=== PATIENT | male | born 1940 | race Caucasian/White ===

== ENCOUNTER 2016-07-28 12:33 | Emergency (ER) | payer MEDICARE, OTHER ==
[~2016-07-28] VITALS: Ht 180.3 cm; Wt 90.7 kg
[2016-07-28] MEDS ORDERED: SODIUM CHLORIDE 0.9% 1,000 ML IV ONE (13:09)
[2016-07-28 13:26] LABS: Basophils # (auto) 0 uL; Basophils % (auto) 0.4 % (0.0-2.0); Eosinophils # (auto) 0 uL; Eosinophils % (auto) 0.4 % (0.0-7.0); Hematocrit 50.3 % (41.0-53.0); Hemoglobin 17.2 g/dL (13.5-17.5); Lymphocytes # (auto) 1.7 uL; Lymphocytes % (auto) 16.6 % (10.0-50.0); Mean Corpuscular Hemoglobin 32.9 pg (28.0-32.0); Mean Corpuscular Hgb Conc. 34.2 g/dL (32.0-36.0); Mean Corpuscular Volume 96.2 fL (80.0-100.0); Mean Platelet Volume 7.7 fL (7.4-10.4); Monocytes # (auto) 0.7 uL; Neutrophils # (auto) 7.8 uL; Neutrophils % (auto) 75.6 % (37.0-80.0); Platelet Count (auto) 141 10^3/uL (140-450); Red Cell Distribution Width 14.8 % (11.6-16.0); White Blood Cell 10.4 10^3/uL (4.4-10.8)
[2016-07-28 13:46] LABS: Bilirubin, Total 0.4 mg/dL (0.2-1.0); Calcium 8.6 mg/dL (8.5-10.1); Potassium 3.8 mmol/L (3.5-5.1); Total Protein 7.1 g/dL (6.4-8.2)
[2016-07-28] MEDS ORDERED: SIMV-13 PO (15:19)
[2016-07-28] MEDS ORDERED: OXYB5TAB62 PO (15:19)
[2016-07-28] MEDS ORDERED: LEVO112T4 PO (15:19)
[2016-07-28] MEDS ORDERED: ALLO300T2 PO (15:19)
[2016-07-28] MEDS ORDERED: TAMS0.4C36 PO (15:19)
[2016-07-28] MEDS ORDERED: TEMA30CA PO (15:19)
[2016-07-28] MEDS ORDERED: LISI10TA6 PO (15:19)
[2016-07-28] MEDS ORDERED: ONDANSETRON HCL 4 MG/2 ML VIAL ONE (15:54)
[2016-07-28] MEDS ORDERED: ONDANSETRON HCL 4 MG/2 ML VIAL IV ONE (16:00)
[2016-07-28 16:15] VITALS: BP 110/39
[2016-07-28 16:24] LABS: Urine Bilirubin Negative (Negative); Urine Blood Negative /uL (Negative); Urine Color Yellow (Yellow); Urine Glucose Normal (Normal); Urine Hyaline Cast FEW /lpf (0 - 2); Urine Ketone TRACE (Negative); Urine Mucus FEW (None Seen); Urine Nitrite Negative (Negative); Urine RBC 1 /hpf (0 - 3); Urine Squamous Epithelial Cell FEW /hpf (<5); Urine Urobilinogen Normal (Negative); Urine pH 5.5 (5.0-8.0)
== END 2016-07-28 18:15 | disposition home or self-care (01) ==
LOC: ER 12:33 → EDBD 12:33 → ER 18:15
DX: R55 Syncope and collapse (principal); J32.4 Chronic pansinusitis; E44.1 Mild protein-calorie malnutrition; Z68.27 Body mass index [BMI] 27.0-27.9, adult; N28.9 Disorder of kidney and ureter, unspecified; E03.9 Hypothyroidism, unspecified; R42 Dizziness and giddiness; M10.9 Gout, unspecified; E78.5 Hyperlipidemia, unspecified; I10 Essential (primary) hypertension; E07.9 Disorder of thyroid, unspecified; Z79.899 Other long term (current) drug therapy
CPT/HCPCS: 36415; 70450; 71020; 80053; 80320; 81001; 83735; 84443; 84484; 85025; 85379; 93005; 94761; 96361; 96374; 99285; G0434; J2405; J7030

== ENCOUNTER → 2016-09-28 | Outpatient (CLI) | payer MEDICARE, OTHER ==
[~2016-09-28] MED LIST: ALLO300T2 PO; LEVO112T4 PO; LISI10TA6 PO; OXYB5TAB62 PO; SIMV-13 PO; TAMS0.4C36 PO; TEMA30CA PO
== END | disposition home or self-care (01) ==
LOC: HDHVI->DVH 08:26
PROVIDERS: ATTEND Internal Medicine Cardiovascular Disease
DX: R55 Syncope and collapse (principal); E86.9 Volume depletion, unspecified
CPT/HCPCS: 93880

== ENCOUNTER → 2016-10-14 | Outpatient (CLI) | payer MEDICARE, OTHER ==
[~2016-10-14] VITALS: Ht 177.8 cm; Wt 88.5 kg
== END | disposition home or self-care (01) ==
LOC: Rad HDHVI 08:14
PROVIDERS: ATTEND Internal Medicine Cardiovascular Disease
DX: I35.0 Nonrheumatic aortic (valve) stenosis (principal); I51.7 Cardiomegaly; I70.0 Atherosclerosis of aorta; I10 Essential (primary) hypertension; E78.00 Pure hypercholesterolemia, unspecified; E86.9 Volume depletion, unspecified; R55 Syncope and collapse
CPT/HCPCS: 78452; 93017; 93306; 96374; A9500

== ENCOUNTER 2020-10-10 12:05 | Inpatient (IN) | payer MEDICARE, OTHER ==
[~2020-10-10] VITALS: Ht 180.3 cm; Wt 67.2 kg
[~2020-10-10 12:05] MED LIST changes: +LISI-716 PO; -LISI10TA6 PO; +OXYB5TAB24 PO; -OXYB5TAB62 PO
[2020-10-10 13:46] LABS: Basophils # (auto) 0 10 ^3/uL (0-0.2); Basophils % (auto) 0.4 % (0.0-2.0); Eosinophils # (auto) 0 10 ^3/uL (0-0.8); Eosinophils % (auto) 0.2 % (0.0-7.0); Hematocrit 43.3 % (41.0-53.0); Hemoglobin 15.3 g/dL (13.5-17.5); Lymphocytes # (auto) 1.9 10 ^3/uL (0.4-5.4); Lymphocytes % (auto) 14.5 % (10.0-50.0); Mean Corpuscular Hemoglobin 33.3 pg (28.0-32.0); Mean Corpuscular Hgb Conc. 35.3 g/dL (32.0-36.0); Mean Corpuscular Volume 94.3 fL (80.0-100.0); Monocytes # (auto) 1.4 10 ^3/uL (0-1.3); Monocytes % (auto) 10.7 % (0.0-12.0); Neutrophils # (auto) 9.6 10 ^3/uL (1.6-8.6); Neutrophils % (auto) 74.2 % (37.0-80.0); Nucleated Red Blood Cells % 0.3 %; Platelet Count (auto) 186 10^3/uL (140-450); Red Blood Cells 4.59 10^6/uL (4.5-5.90); Red Cell Distribution Width 14.3 % (11.8-14.3); White Blood Cell 12.9 10^3/uL (4.4-10.8)
[2020-10-10 14:06] LABS: Blood Alcohol < 3.0 mg/dL (0-5)
[2020-10-10 14:18] LABS: Anion Gap 11 (5-15); Blood Urea Nitrogen 44 mg/dL (7-18); Calcium 8.4 mg/dL (8.5-10.1); Carbon Dioxide 17 mmol/L (21-32); Chloride 107 mmol/L (98-107); Glucose 121 mg/dL (74-106); Potassium 3.9 mmol/L (3.5-5.1); Sodium 135 mmol/L (136-145)
[2020-10-10 14:22] LABS: Alanine Aminotransferase 60 U/L (16-61); Alkaline Phosphatase 103 U/L (45-117); Aspartate Aminotransferase 68 U/L (15-37); BUN/Creatinine Ratio 30.8; Bilirubin, Total 0.7 mg/dL (0.2-1.0); GFR African American 61 mL/min; GFR Non-African American 50 mL/min; Total Protein 8.2 g/dL (6.4-8.2)
[2020-10-10] MEDS ORDERED: ASCORBIC ACID 500 MG TAB PO ONE (14:30)
[2020-10-10] MEDS ORDERED: AZITHROMYCIN 500MG/ 250ML 250 ML IV ONE (14:30)
[2020-10-10] MEDS ORDERED: ZINC SULFATE 220mg CAP or TAB PO ONE (14:30)
[2020-10-10] MEDS ORDERED: CHOLECALCIFEROL (VITD3) 2,000 UNIT CAP/TAB PO ONE (14:30)
[2020-10-10] MEDS ORDERED: methylPREDNISolone SOD SUCC 125 MG/2 ML VL IV ONE (14:30)
[2020-10-10 15:11] LABS: Albumin 2.7 g/dL (3.4-5.0)
[2020-10-10] MEDS ORDERED: MORPHINE SULF INJ 2 MG/ML SYRINGE 1ML IV PRN ×3 (16:15→16:45)
[2020-10-10] MEDS ORDERED: NITROGLYCERIN 0.4 MG SL TAB SL PRN ×2 (16:15→16:45)
[2020-10-10] MEDS ORDERED: ACETAMINOPHEN 325 MG TAB PO PRN (16:45)
[2020-10-10] MEDS ORDERED: ALUM & MAG HYDROX-SIMETH LIQ(MAALOX) 30 ML PO PRN (16:45)
[2020-10-10] MEDS ORDERED: LORazepam 0.5 MG TAB PO PRN (16:45)
[2020-10-10] MEDS ORDERED: ONDANSETRON HCL 4 MG/2 ML VIAL IV PRN (16:45)
[2020-10-10] MEDS ORDERED: DOCUSATE SOD 100 MG CAP PO PRN (16:45)
[2020-10-10] MEDS ORDERED: HYDROcodone-ACET 5/325MG TAB PO PRN (16:45)
[2020-10-10] MEDS ORDERED: ALBUTEROL SULF 2.5 MG/0.5ML(0.5%) NEB SOLN NEB PRN (17:00)
[2020-10-10] MEDS ORDERED: AMPICILLIN & SULBACTAM SODIUM 3 GM in SODIUM CHL 0.9% 100 ML IV SCH ×2 (17:10→17:30)
[2020-10-10 17:19] LABS: Urine Bacteria MANY /hpf (None Seen); Urine Blood 3+ /uL (Negative); Urine Specific Gravity 1.013 (1.001-1.035); Urine WBC 498 /hpf (0 - 3); Urine WBC Clumps PRESENT /hpf (None Seen)
[2020-10-10 17:25] LABS: Alcohol, Urine < 3.0 mg/dL (0-10); Amphetamine Screen, Urine NEGATIVE (NEGATIVE); Barbiturate Scree,Urine NEGATIVE (NEGATIVE); Benzodiazephine Screen, Urine NEGATIVE (NEGATIVE); Cannabinoid Screen, Urine NEGATIVE (NEGATIVE); Cocaine Screen, Urine NEGATIVE (NEGATIVE); Opiate Scree,Urine NEGATIVE (NEGATIVE); Phencyclidine Screen, Urine NEGATIVE (NEGATIVE)
[2020-10-10] MEDS ORDERED: IPRATROPIUM BROM 0.5 MG/2.5ML INH SOL NEB SCH (18:00)
[2020-10-10 18:07] VITALS: BP 93/60
[2020-10-10] MEDS: SODIUM CHLORIDE 0.9% 1,000 ML IV SCH (18:23)
[2020-10-10] MEDS: AMPICILLIN & SULBACTAM SODIUM 3 GM in SODIUM CHL 0.9% 100 ML IV SCH ×2 (18:23→23:45)
[2020-10-10] MEDS ORDERED: IPRATROPIUM BROM 0.5 MG/2.5ML INH SOL NEB PRN (19:30)
[2020-10-10] MEDS ORDERED: METOPROLOL TARTRATE 1MG/1ML-5ML VIAL IV PRN (19:30)
[2020-10-10 19:40] VITALS: BP 93/60
[2020-10-10 19:52] LABS: Cholesterol 165 mg/dL (< 200); HDL Cholesterol 43 mg/dL (40-59); LDL Cholesterol 96 mg/dL (< 100); Triglycerides 145 mg/dL (< 150)
[2020-10-10] MEDS: ENOXAPARIN SOD 30 MG/0.3 ML SYRINGE SC SCH (21:10)
[2020-10-10] MEDS: methylPREDNISolone SOD SUCC 40 MG/ML VL IV SCH (21:11)
[2020-10-10] MEDS: OXYBUTYNIN CHL 5 MG TAB PO SCH (21:11)
[2020-10-10 22:00] VITALS: BP 89/59
[2020-10-11 04:20] VITALS: BP 110/73
[2020-10-11] MEDS: methylPREDNISolone SOD SUCC 40 MG/ML VL IV SCH ×3 (05:54→21:36)
[2020-10-11] MEDS: AMPICILLIN & SULBACTAM SODIUM 3 GM in SODIUM CHL 0.9% 100 ML IV SCH (05:54)
[2020-10-11] MEDS: LEVOTHYROXINE SODIUM 112 MCG TAB PO SCH (05:55)
[2020-10-11 06:03] LABS: Basophils # (auto) 0 10 ^3/uL (0-0.2); Basophils % (auto) 0.1 % (0.0-2.0); Eosinophils # (auto) 0 10 ^3/uL (0-0.8); Hemoglobin 13.9 g/dL (13.5-17.5); Lymphocytes # (auto) 1.2 10 ^3/uL (0.4-5.4); Lymphocytes % (auto) 17.1 % (10.0-50.0); Mean Corpuscular Hemoglobin 33.7 pg (28.0-32.0); Mean Corpuscular Hgb Conc. 35.6 g/dL (32.0-36.0); Mean Corpuscular Volume 94.7 fL (80.0-100.0); Monocytes # (auto) 0.2 10 ^3/uL (0-1.3); Neutrophils # (auto) 5.6 10 ^3/uL (1.6-8.6); Neutrophils % (auto) 79.8 % (37.0-80.0); Nucleated Red Blood Cells % 0.1 %; Platelet Count (auto) 170 10^3/uL (140-450); Red Blood Cells 4.12 10^6/uL (4.5-5.90); Red Cell Distribution Width 14.6 % (11.8-14.3); White Blood Cell 7.1 10^3/uL (4.4-10.8)
[2020-10-11 06:14] LABS: INR 0.99 (0.9-1.15); Partial Thromboplastin Time 25.9 sec (23.0-31.2)
[2020-10-11 06:16] LABS: Albumin 2.4 g/dL (3.4-5.0); Anion Gap 8 (5-15); Blood Urea Nitrogen 47 mg/dL (7-18); Calcium 8.3 mg/dL (8.5-10.1); Carbon Dioxide 21 mmol/L (21-32); Chloride 108 mmol/L (98-107); Glucose 163 mg/dL (74-106); Magnesium 2.6 mg/dL (1.6-2.6); Potassium 4.4 mmol/L (3.5-5.1); Sodium 137 mmol/L (136-145)
[2020-10-11 06:22] LABS: Alanine Aminotransferase 62 U/L (16-61); Alkaline Phosphatase 93 U/L (45-117); Aspartate Aminotransferase 55 U/L (15-37); BUN/Creatinine Ratio 39.5; Bilirubin, Total 0.5 mg/dL (0.2-1.0); GFR African American 75 mL/min; GFR Non-African American 62 mL/min; Phosphorus 3.9 mg/dL (2.5-4.90); Total Protein 7.4 g/dL (6.4-8.2); Uric Acid 7.7 mg/dL (3.5-7.2)
[2020-10-11 09:00] VITALS: BP 123/70
[2020-10-11] MEDS: SODIUM CHLORIDE 0.9% 1,000 ML IV SCH ×3 (09:25→23:31)
[2020-10-11] MEDS: OXYBUTYNIN CHL 5 MG TAB PO SCH ×2 (09:44→21:36)
[2020-10-11] MEDS: ALLOPURINOL 100 MG TAB PO SCH (09:44)
[2020-10-11] MEDS: AZITHROMYCIN 500MG/ 250ML 250 ML IV SCH (09:44)
[2020-10-11] MEDS ORDERED: cefTRIAXone 1GM/50ML D5W 50 ML IV ONE (11:00)
[2020-10-11 13:00] VITALS: BP 110/72
[2020-10-11] MEDS ORDERED: IOHEXOL 350 MG/ML 100ML IJ ONE (16:18)
[2020-10-11 17:00] VITALS: BP 98/65
[2020-10-11] MEDS: TAMSULOSIN HYDROCHLORIDE 0.4 MG CAP PO SCH (17:46)
[2020-10-11] MEDS: ENOXAPARIN SOD 30 MG/0.3 ML SYRINGE SC SCH (17:46)
[2020-10-11] MEDS: ATORVASTATIN 20 MG TAB PO SCH (21:37)
[2020-10-11 21:52] VITALS: BP 111/69
[2020-10-12 05:00] VITALS: BP 99/64
[2020-10-12] MEDS: methylPREDNISolone SOD SUCC 40 MG/ML VL IV SCH ×3 (06:16→22:14)
[2020-10-12] MEDS: LEVOTHYROXINE SODIUM 112 MCG TAB PO SCH (06:17)
[2020-10-12 08:30] VITALS: BP 102/64
[2020-10-12] MEDS ORDERED: TEMAZEPAM 15 MG CAP PO PRN (08:30)
[2020-10-12] MEDS: cefTRIAXone 1GM/50ML D5W 50 ML IV SCH (08:38)
[2020-10-12] MEDS: AZITHROMYCIN 500MG/ 250ML 250 ML IV SCH (09:24)
[2020-10-12] MEDS: ALLOPURINOL 100 MG TAB PO SCH (09:25)
[2020-10-12] MEDS: OXYBUTYNIN CHL 5 MG TAB PO SCH ×2 (09:25→22:14)
[2020-10-12 13:00] VITALS: BP 105/70
[2020-10-12 16:58] VITALS: BP 103/66
[2020-10-12] MEDS: TAMSULOSIN HYDROCHLORIDE 0.4 MG CAP PO SCH (17:26)
[2020-10-12] MEDS ORDERED: ENOXAPARIN SOD 40 MG/0.4 ML SYRINGE SC SCH (18:00)
[2020-10-12 22:00] VITALS: BP 104/71
[2020-10-12] MEDS: ATORVASTATIN 20 MG TAB PO SCH (22:14)
[2020-10-13 05:00] VITALS: BP 117/72
[2020-10-13] MEDS: LEVOTHYROXINE SODIUM 112 MCG TAB PO SCH (06:18)
[2020-10-13] MEDS: methylPREDNISolone SOD SUCC 40 MG/ML VL IV SCH (06:18)
[2020-10-13 08:00] VITALS: BP 99/64
[2020-10-13] MEDS: cefTRIAXone 1GM/50ML D5W 50 ML IV SCH (08:45)
[2020-10-13] MEDS: AZITHROMYCIN 500MG/ 250ML 250 ML IV SCH (10:59)
[2020-10-13] MEDS: ALLOPURINOL 100 MG TAB PO SCH (11:00)
[2020-10-13] MEDS: OXYBUTYNIN CHL 5 MG TAB PO SCH (11:00)
[2020-10-13 12:00] VITALS: BP 107/67
[2020-10-13 12:14] VITALS: BP 107/67
== END 2020-10-13 13:00 | disposition home or self-care (01) | DRG 871 ==
LOC: ER 12:05 → TELE 16:08 → TELE-EAST 17:52
PROVIDERS: ADMIT Hospitalist; ATTEND Family Medicine
DX: A41.9 Sepsis, unspecified organism (principal); J96.20 Acute and chronic respiratory failure, unspecified whether with hypoxia or hypercapnia; G93.41 Metabolic encephalopathy; J18.9 Pneumonia, unspecified organism; N17.0 Acute kidney failure with tubular necrosis; J44.1 Chronic obstructive pulmonary disease with (acute) exacerbation; N10 Acute pyelonephritis; J44.0 Chronic obstructive pulmonary disease with (acute) lower respiratory infection; N13.8 Other obstructive and reflux uropathy; R29.6 Repeated falls; J20.9 Acute bronchitis, unspecified; N18.31 Chronic kidney disease, stage 3a; N13.9 Obstructive and reflux uropathy, unspecified; N32.81 Overactive bladder; M1A.9XX0 Chronic gout, unspecified, without tophus (tophi); I48.91 Unspecified atrial fibrillation; E86.0 Dehydration; E03.9 Hypothyroidism, unspecified; E78.5 Hyperlipidemia, unspecified; I13.10 Hypertensive heart and chronic kidney disease without heart failure, with stage 1 through stage 4 chronic kidney disease, or unspecified chronic kidney disease; Z20.822 Contact with and (suspected) exposure to COVID-19
CPT/HCPCS: 36415; 70450; 71046; 71275; 74176; 80053; 80061; 80307; 80320; 81001; 82140; 82306; 82728; 83036; 83735; 83880; 84100; 84443; 84484; 84550; 85025; 85379; 85610; 85730; 86141; 87040; 87086; 87088; 87186; 87426; 93005; 93970; 96365; 96375; G0378; J0696

== ENCOUNTER 2022-10-18 08:50 | Inpatient (IN) | payer MEDICARE, OTHER ==
[~2022-10-18] VITALS: Ht 180.3 cm; Wt 87.5 kg
[2022-10-18 10:22] LABS: INR 1.06 (0.9-1.15); Partial Thromboplastin Time 30.6 sec (24.6-33.4)
[2022-10-18 10:28] LABS: Basophils # (auto) 0 10 ^3/uL (0-0.2); Basophils % (auto) 0.5 % (0.0-2.0); Eosinophils # (auto) 0.1 10 ^3/uL (0-0.8); Eosinophils % (auto) 0.9 % (0.0-7.0); Hematocrit 44.7 % (41.0-53.0); Hemoglobin 14.8 g/dL (13.5-17.5); Lymphocytes # (auto) 2.1 10 ^3/uL (0.4-5.4); Lymphocytes % (auto) 23.6 % (10.0-50.0); Mean Corpuscular Hemoglobin 31.6 pg (28.0-32.0); Mean Corpuscular Hgb Conc. 33.2 g/dL (32.0-36.0); Mean Corpuscular Volume 95.1 fL (80.0-100.0); Monocytes # (auto) 0.6 10 ^3/uL (0-1.3); Monocytes % (auto) 7.2 % (0.0-12.0); Neutrophils % (auto) 67.8 % (37.0-80.0); Nucleated Red Blood Cells % 0.1 %; Red Cell Distribution Width 15.5 % (11.8-14.3); White Blood Cell 8.9 10^3/uL (4.4-10.8)
[2022-10-18 12:23] LABS: Chloride 103 mmol/L (98-107); Potassium 5.1 mmol/L (3.5-5.1); Sodium 134 mmol/L (136-145)
[2022-10-18 12:24] LABS: Anion Gap 14 (5-15); BUN/Creatinine Ratio 15.7 (10.0-20.0); Blood Urea Nitrogen 17 mg/dL (7-18); Carbon Dioxide 17 mmol/L (21-32); GFR African American 84 mL/min; GFR Non-African American 69 mL/min; Glucose 117 mg/dL (74-106)
[2022-10-18 12:25] LABS: Alanine Aminotransferase 41 U/L (16-61); Albumin 3.7 g/dL (3.4-5.0); Alkaline Phosphatase 106 U/L (45-117); Aspartate Aminotransferase 46 U/L (15-37); Bilirubin, Total 0.9 mg/dL (0.2-1.0); Calcium 8.8 mg/dL (8.5-10.1); Magnesium 2.2 mg/dL (1.6-2.6); Total Protein 7.2 g/dL (6.4-8.2)
[2022-10-18] MEDS ORDERED: dilTIAZem HCL 50 MG/10 ML VIAL IV ONE (12:30)
[2022-10-18] MEDS ORDERED: MORPHINE SULFATE INJ 2 MG/ml SYRG IV PRN (13:00)
[2022-10-18] MEDS ORDERED: ACETAMINOPHEN 325 MG TAB PO PRN (13:00)
[2022-10-18] MEDS ORDERED: ALBUTEROL SULF 2.5 MG/0.5ML(0.5%) NEB SOLN NEB PRN ×2 (13:00→13:30)
[2022-10-18] MEDS ORDERED: NITROGLYCERIN 0.4 MG SL TAB SL PRN (13:00)
[2022-10-18] MEDS ORDERED: FUROSEMIDE 20 MG/2 ML VIAL IV ONE (13:00)
[2022-10-18] MEDS ORDERED: dilTIAZem 25 MG/5 ML VIAL IV ONE (13:15)
[2022-10-18] MEDS ORDERED: dilTIAZem HCL 60 MG TAB PO ONE (13:15)
[2022-10-18 13:26] VITALS: BP 135/111
[2022-10-18] MEDS ORDERED: ASPirin 325 MG TAB PO ONE (13:30)
[2022-10-18 14:51] LABS: Cholesterol 122 mg/dL (< 200)
[2022-10-18 14:54] LABS: HDL Cholesterol 79 mg/dL (40-59); LDL Cholesterol 41 mg/dL (< 100); Triglycerides 75 mg/dL (< 150)
[2022-10-18] MEDS: IPRATROPIUM BROM 0.5 MG/2.5ML INH SOL NEB SCH (19:17)
[2022-10-18] MEDS: ALBUTEROL SULF 2.5 MG/0.5ML(0.5%) NEB SOLN NEB SCH (19:18)
[2022-10-18 21:30] VITALS: BP 129/80
[2022-10-18] MEDS: TEMAZEPAM 15 MG CAP PO PRN (23:47)
[2022-10-18 23:55] VITALS: BP 129/80
[2022-10-19] VITALS (7 sets, daily range): BP systolic 95–130; BP diastolic 61–85
[2022-10-19] MEDS: ALBUTEROL SULF 2.5 MG/0.5ML(0.5%) NEB SOLN NEB SCH ×4 (00:14→18:50)
[2022-10-19] MEDS: IPRATROPIUM BROM 0.5 MG/2.5ML INH SOL NEB SCH ×4 (00:15→18:50)
[2022-10-19] MEDS: LEVOTHYROXINE SODIUM 112 MCG TAB PO SCH (06:59)
[2022-10-19 07:00] LABS: Basophils # (auto) 0 10 ^3/uL (0-0.2); Basophils % (auto) 0.7 % (0.0-2.0); Eosinophils # (auto) 0.1 10 ^3/uL (0-0.8); Eosinophils % (auto) 1.9 % (0.0-7.0); Hematocrit 42.7 % (41.0-53.0); Hemoglobin 14.5 g/dL (13.5-17.5); Lymphocytes # (auto) 1.9 10 ^3/uL (0.4-5.4); Lymphocytes % (auto) 26.1 % (10.0-50.0); Mean Corpuscular Hgb Conc. 33.9 g/dL (32.0-36.0); Mean Corpuscular Volume 94.4 fL (80.0-100.0); Monocytes # (auto) 0.6 10 ^3/uL (0-1.3); Monocytes % (auto) 8.6 % (0.0-12.0); Neutrophils # (auto) 4.5 10 ^3/uL (1.6-8.6); Neutrophils % (auto) 62.7 % (37.0-80.0); Nucleated Red Blood Cells % 0.1 %; Red Blood Cells 4.53 10^6/uL (4.5-5.90); White Blood Cell 7.1 10^3/uL (4.4-10.8)
[2022-10-19 08:00] LABS: Potassium 4.3 mmol/L (3.5-5.1)
[2022-10-19 08:48] LABS: Albumin 3.3 g/dL (3.4-5.0); BUN/Creatinine Ratio 15.2 (10.0-20.0); Bilirubin, Total 0.8 mg/dL (0.2-1.0); Calcium 8.7 mg/dL (8.5-10.1); Total Protein 7.1 g/dL (6.4-8.2)
[2022-10-19] MEDS: ALLOPURINOL 300 MG TAB PO SCH (08:49)
[2022-10-19] MEDS: ASPirin 81 mg TAB PO SCH (08:54)
[2022-10-19] MEDS: ATORVASTATIN 20 MG TAB PO SCH (08:54)
[2022-10-19] MEDS: LISINOPRIL 10 MG TAB PO SCH (08:55)
[2022-10-19] MEDS ORDERED: ENOXAPARIN SOD 40 MG/0.4 ML SYRINGE SC SCH (10:00)
[2022-10-19] MEDS ORDERED: BUMETANIDE 2.5mg/10ml (0.25 mg/ml) INJ IV ONE (15:15)
[2022-10-19] MEDS: BUMETANIDE 2.5mg/10ml (0.25 mg/ml) INJ IV SCH (17:42)
[2022-10-19] MEDS: APIXABAN 2.5 MG TAB PO SCH (20:45)
[2022-10-19] MEDS: TEMAZEPAM 15 MG CAP PO PRN (20:45)
[2022-10-20] VITALS (11 sets, daily range): BP systolic 91–119; BP diastolic 62–78
[2022-10-20] MEDS: ALBUTEROL SULF 2.5 MG/0.5ML(0.5%) NEB SOLN NEB SCH ×5 (00:29→23:37)
[2022-10-20] MEDS: IPRATROPIUM BROM 0.5 MG/2.5ML INH SOL NEB SCH ×5 (00:29→23:37)
[2022-10-20] MEDS: LEVOTHYROXINE SODIUM 112 MCG TAB PO SCH (06:06)
[2022-10-20] MEDS: BUMETANIDE 2.5mg/10ml (0.25 mg/ml) INJ IV SCH ×2 (06:14→18:55)
[2022-10-20 10:13] LABS: Albumin 3.5 g/dL (3.4-5.0); Calcium 8.9 mg/dL (8.5-10.1)
[2022-10-20 10:15] LABS: Bilirubin, Total 0.6 mg/dL (0.2-1.0); Total Protein 7.6 g/dL (6.4-8.2)
[2022-10-20] MEDS: ATORVASTATIN 20 MG TAB PO SCH (11:45)
[2022-10-20] MEDS: APIXABAN 2.5 MG TAB PO SCH ×2 (11:45→20:58)
[2022-10-20] MEDS: ALLOPURINOL 300 MG TAB PO SCH (11:45)
[2022-10-20] MEDS: LISINOPRIL 10 MG TAB PO SCH (11:46)
[2022-10-20] MEDS: ASPirin 81 mg TAB PO SCH (11:46)
[2022-10-20] MEDS ORDERED: AMIODARONE HCL 150 MG in D5W 5% 100 ML IV ONE (12:45)
[2022-10-20] MEDS ORDERED: AMIODARONE 450mg/250ml AE 250 ML IV SCH (12:45)
[2022-10-20] MEDS: AMIODARONE 450mg/250ml AE 250 ML IV SCH (18:52)
[2022-10-20] MEDS: TEMAZEPAM 15 MG CAP PO PRN (20:58)
[2022-10-21] MEDS: AMIODARONE 450mg/250ml AE 250 ML IV SCH (02:03)
[2022-10-21 05:00] VITALS: BP 116/68
[2022-10-21] MEDS: ALBUTEROL SULF 2.5 MG/0.5ML(0.5%) NEB SOLN NEB SCH ×3 (05:51→18:15)
[2022-10-21] MEDS: IPRATROPIUM BROM 0.5 MG/2.5ML INH SOL NEB SCH ×3 (05:51→18:15)
[2022-10-21 06:59] LABS: BUN/Creatinine Ratio 24.1 (10.0-20.0); Calcium 9.1 mg/dL (8.5-10.1); Magnesium 1.9 mg/dL (1.6-2.6); Potassium 3.5 mmol/L (3.5-5.1)
[2022-10-21] MEDS: LEVOTHYROXINE SODIUM 112 MCG TAB PO SCH (07:00)
[2022-10-21] MEDS: BUMETANIDE 2.5mg/10ml (0.25 mg/ml) INJ IV SCH ×2 (07:09→18:00)
[2022-10-21 09:00] VITALS: BP 113/74
[2022-10-21] MEDS: ATORVASTATIN 20 MG TAB PO SCH (10:33)
[2022-10-21] MEDS: APIXABAN 2.5 MG TAB PO SCH ×2 (10:33→21:31)
[2022-10-21] MEDS: ALLOPURINOL 300 MG TAB PO SCH (10:33)
[2022-10-21] MEDS: LISINOPRIL 10 MG TAB PO SCH (10:34)
[2022-10-21] MEDS: ASPirin 81 mg TAB PO SCH (10:34)
[2022-10-21 12:41] VITALS: BP 104/76
[2022-10-21 16:23] VITALS: BP 104/76
[2022-10-21 17:00] VITALS: BP 105/84
[2022-10-21] MEDS: AMIODARONE HCL 200 MG TAB PO SCH (21:31)
[2022-10-21] MEDS: TEMAZEPAM 15 MG CAP PO PRN (21:31)
[2022-10-21 22:00] VITALS: BP 99/56
[2022-10-22 05:00] VITALS: BP 98/67
[2022-10-22] MEDS: BUMETANIDE 2.5mg/10ml (0.25 mg/ml) INJ IV SCH (05:48)
[2022-10-22] MEDS: LEVOTHYROXINE SODIUM 112 MCG TAB PO SCH (06:19)
[2022-10-22 06:33] LABS: BUN/Creatinine Ratio 23.8 (10.0-20.0); Calcium 9.1 mg/dL (8.5-10.1); Potassium 3.5 mmol/L (3.5-5.1)
[2022-10-22] MEDS: IPRATROPIUM BROM 0.5 MG/2.5ML INH SOL NEB SCH ×4 (07:09→18:00)
[2022-10-22] MEDS: ALBUTEROL SULF 2.5 MG/0.5ML(0.5%) NEB SOLN NEB SCH ×4 (07:09→18:00)
[2022-10-22 08:57] VITALS: BP 102/86
[2022-10-22] MEDS: ALLOPURINOL 300 MG TAB PO SCH (09:50)
[2022-10-22] MEDS: APIXABAN 2.5 MG TAB PO SCH (09:50)
[2022-10-22] MEDS: AMIODARONE HCL 200 MG TAB PO SCH (09:51)
[2022-10-22] MEDS: ASPirin 81 mg TAB PO SCH (09:51)
[2022-10-22] MEDS: ATORVASTATIN 20 MG TAB PO SCH (09:51)
[2022-10-22] MEDS: LISINOPRIL 10 MG TAB PO SCH (09:53)
[2022-10-22 12:29] VITALS: BP 102/86
[2022-10-22 12:53] VITALS: BP 115/73
[2022-10-22 17:14] VITALS: BP 121/80
== END 2022-10-22 17:54 | DRG 291 ==
LOC: EDBD 08:50 → ER 08:50 → TELE 13:01 → TELE-WESTW 21:11
PROVIDERS: ADMIT Nurse Practitioner Family; ATTEND Internal Medicine
DX: I11.0 Hypertensive heart disease with heart failure (principal); I50.21 Acute systolic (congestive) heart failure; J96.01 Acute respiratory failure with hypoxia; D68.69 Other thrombophilia; I42.8 Other cardiomyopathies; Z20.822 Contact with and (suspected) exposure to COVID-19; E78.5 Hyperlipidemia, unspecified; I48.91 Unspecified atrial fibrillation; I35.0 Nonrheumatic aortic (valve) stenosis; M10.9 Gout, unspecified; E03.9 Hypothyroidism, unspecified; F41.9 Anxiety disorder, unspecified; I25.5 Ischemic cardiomyopathy; Z79.899 Other long term (current) drug therapy
CPT/HCPCS: 36415; 71045; 80048; 80053; 80061; 83735; 83880; 84100; 84439; 84443; 84484; 85025; 85379; 85610; 85730; 87426; 93005; 93306; 94640; 96374; 96375; 99291; G0378; J7060

== ENCOUNTER → 2022-11-22 | Outpatient (CLI) | payer MEDICARE, OTHER ==
[~2022-11-22] VITALS: Ht 180.3 cm; Wt 83.5 kg
[~2022-11-22] MED LIST changes: +ADENOSINE 70 MG in GIVE UN-DILUTED 0 ML IV ONE; +ADENOSINE 90 MG/30 ML INJ IV ONE; +AMIO200T13 PO; +IBUP-1456 PO; -LISI-716 PO; +LISI10TA34 PO; +MAGN200T11 PO; +ONDANSETRON HCL 4 MG/2 ML VIAL ONE; +RIVA20TA PO; -SIMV-13 PO; +SIMV40TA18 PO
== END | disposition home or self-care (01) ==
LOC: Rad HDHVI 14:23
PROVIDERS: ATTEND Internal Medicine Cardiovascular Disease
DX: I11.0 Hypertensive heart disease with heart failure (principal); I50.9 Heart failure, unspecified; E78.5 Hyperlipidemia, unspecified; I25.10 Atherosclerotic heart disease of native coronary artery without angina pectoris; I48.91 Unspecified atrial fibrillation; R06.02 Shortness of breath; R00.2 Palpitations; Z79.899 Other long term (current) drug therapy
CPT/HCPCS: 78452; 93005; 96374; 96375; A9500; J0153; J2405

== ENCOUNTER → 2022-11-24 | Outpatient (CLI) | payer MEDICARE, OTHER ==
[~2022-11-24] MED LIST changes: -ADENOSINE 70 MG in GIVE UN-DILUTED 0 ML IV ONE; -ADENOSINE 90 MG/30 ML INJ IV ONE; -ONDANSETRON HCL 4 MG/2 ML VIAL ONE
[2022-11-24 08:10] VITALS: BP 126/71
[2022-11-24 09:20] VITALS: BP 139/84
== END | disposition home or self-care (01) ==
LOC: Rad HDHVI 08:10
PROVIDERS: ATTEND Internal Medicine Cardiovascular Disease
DX: Z01.818 Encounter for other preprocedural examination (principal); I48.0 Paroxysmal atrial fibrillation
CPT/HCPCS: 71046; G0463

== ENCOUNTER 2022-11-25 07:25 | Day surgery (SDC) | payer MEDICARE, OTHER ==
[2022-11-24 10:05] LABS: Basophils # (auto) 0 10 ^3/uL (0-0.2); Basophils % (auto) 0.6 % (0.0-2.0); Eosinophils # (auto) 0.1 10 ^3/uL (0-0.8); Eosinophils % (auto) 1.4 % (0.0-7.0); Hematocrit 47.8 % (41.0-53.0); Hemoglobin 16.2 g/dL (13.5-17.5); Lymphocytes # (auto) 2.9 10 ^3/uL (0.4-5.4); Lymphocytes % (auto) 34.2 % (10.0-50.0); Mean Corpuscular Hemoglobin 31.4 pg (28.0-32.0); Mean Corpuscular Hgb Conc. 33.9 g/dL (32.0-36.0); Mean Corpuscular Volume 92.6 fL (80.0-100.0); Monocytes # (auto) 0.8 10 ^3/uL (0-1.3); Monocytes % (auto) 9.6 % (0.0-12.0); Neutrophils # (auto) 4.6 10 ^3/uL (1.6-8.6); Neutrophils % (auto) 54.2 % (37.0-80.0); Nucleated Red Blood Cells % 0.2 %; Red Blood Cells 5.16 10^6/uL (4.5-5.90); Red Cell Distribution Width 15.4 % (11.8-14.3); White Blood Cell 8.4 10^3/uL (4.4-10.8)
[2022-11-24 10:19] LABS: INR 1.08 (0.9-1.15); Partial Thromboplastin Time 33.8 SEC (24.5-34.5)
[2022-11-24 11:26] LABS: Calcium 9.1 mg/dL (8.5-10.1); Potassium 5.1 mmol/L (3.5-5.1)
[2022-11-24 11:29] LABS: BUN/Creatinine Ratio 14.2 (10.0-20.0)
[~2022-11-25] VITALS: Ht 180.3 cm; Wt 83.9 kg
[~2022-11-25 07:25] MED LIST changes: -OXYB5TAB24 PO; -TAMS0.4C36 PO
== END 2022-11-25 09:20 | disposition home or self-care (01) ==
LOC: CATH 07:25
PROVIDERS: ATTEND Internal Medicine Cardiovascular Disease
DX: I48.20 Chronic atrial fibrillation, unspecified (principal); I44.0 Atrioventricular block, first degree; E78.5 Hyperlipidemia, unspecified; Z79.01 Long term (current) use of anticoagulants; I11.0 Hypertensive heart disease with heart failure; I50.20 Unspecified systolic (congestive) heart failure
CPT/HCPCS: 36415; 80048; 85025; 85610; 85730; 93005

== ENCOUNTER → 2022-12-27 | Outpatient (CLI) | payer MEDICARE, OTHER | END | disposition home or self-care (01) | LOC: Rad HDHVI 08:56 | PROVIDERS: ATTEND Internal Medicine Cardiovascular Disease | DX: I08.3 Combined rheumatic disorders of mitral, aortic and tricuspid valves (principal); I11.9 Hypertensive heart disease without heart failure; R00.2 Palpitations | CPT/HCPCS: 93306 ==

== ENCOUNTER 2023-02-03 09:47 | Day surgery (SDC) | payer MEDICARE, OTHER ==
[2023-02-02 11:18] LABS: Basophils # (auto) 0.1 10 ^3/uL (0-0.2); Basophils % (auto) 0.6 % (0.0-2.0); Eosinophils # (auto) 0.2 10 ^3/uL (0-0.8); Eosinophils % (auto) 1.6 % (0.0-7.0); Hematocrit 46.5 % (41.0-53.0); Hemoglobin 15.7 g/dL (13.5-17.5); Lymphocytes # (auto) 2.9 10 ^3/uL (0.4-5.4); Mean Corpuscular Hemoglobin 31.8 pg (28.0-32.0); Mean Corpuscular Hgb Conc. 33.7 g/dL (32.0-36.0); Mean Corpuscular Volume 94.3 fL (80.0-100.0); Monocytes # (auto) 0.8 10 ^3/uL (0-1.3); Monocytes % (auto) 8.3 % (0.0-12.0); Neutrophils % (auto) 60.5 % (37.0-80.0); Nucleated Red Blood Cells % 0.1 %; Red Blood Cells 4.93 10^6/uL (4.5-5.90); Red Cell Distribution Width 16.6 % (11.8-14.3); White Blood Cell 9.9 10^3/uL (4.4-10.8)
[2023-02-02 11:33] LABS: INR 1.35 (0.9-1.15); Partial Thromboplastin Time 43.2 SEC (24.5-34.5); Prothrombin Time 13.9 sec (9.3-11.8)
[2023-02-02 12:02] LABS: Anion Gap 5.3 (5-15); Carbon Dioxide 27.7 mmol/L (20-30); Chloride 107 mmol/L (98-107); Potassium 4.7 mmol/L (3.5-5.1); Sodium 140 mmol/L (136-145)
[2023-02-02 12:03] LABS: Calcium 9.1 mg/dL (8.5-10.1)
[2023-02-02 12:08] LABS: Blood Urea Nitrogen 10 mg/dL (9-23); Glucose 94 mg/dL (74-106)
[~2023-02-03] VITALS: Ht 180.3 cm; Wt 80.3 kg
[~2023-02-03 09:47] MED LIST changes: -LISI10TA34 PO
[2023-02-03] MEDS ORDERED: HYDROmorphone HCL 2 MG/ML VL/or syr ONE (12:18)
[2023-02-03] MEDS ORDERED: MAGN400T40 PO (12:43)
[2023-02-03] MEDS ORDERED: SIMV80TA17 PO (12:43)
== END 2023-02-03 15:00 | disposition home or self-care (01) ==
LOC: CATH 09:47
PROVIDERS: ATTEND Internal Medicine Cardiovascular Disease
DX: I25.10 Atherosclerotic heart disease of native coronary artery without angina pectoris (principal); I10 Essential (primary) hypertension; Z79.899 Other long term (current) drug therapy
CPT/HCPCS: 36415; 80048; 85025; 85610; 85730; 93460; 93571; C1757; C1887; C9600; J1170; 99152; 99153

== ENCOUNTER → 2023-12-08 | Outpatient (CLI) | payer MEDICARE, OTHER ==
[~2023-12-08] MED LIST changes: -MAGN200T11 PO; +MAGN400T40 PO; -SIMV40TA18 PO; +SIMV80TA17 PO
== END | disposition home or self-care (01) ==
LOC: Rad HDHVI 08:21
PROVIDERS: ATTEND Internal Medicine Cardiovascular Disease
DX: I35.8 Other nonrheumatic aortic valve disorders (principal); I10 Essential (primary) hypertension
CPT/HCPCS: 93306

== ENCOUNTER → 2024-08-21 | Outpatient (CLI) | payer MEDICARE, OTHER ==
[~2024-08-21] MED LIST changes: +HYDR-4902 PO
== END | disposition home or self-care (01) ==
LOC: Rad HDHVI 08:34
PROVIDERS: ATTEND Internal Medicine Cardiovascular Disease
DX: I34.81 Nonrheumatic mitral (valve) annulus calcification (principal); I51.7 Cardiomegaly
CPT/HCPCS: 93306

== ENCOUNTER → 2024-08-31 | Outpatient (CLI) | payer MEDICARE, OTHER ==
[~2024-08-31] VITALS: Ht 180.3 cm; Wt 90.7 kg
[~2024-08-31] MED LIST changes: +ADENOSINE 76 MG in GIVE UN-DILUTED 0 ML IV ONE; +ADENOSINE 90 MG/30 ML INJ IV ONE
== END | disposition home or self-care (01) ==
LOC: Rad HDHVI 08:06
PROVIDERS: ATTEND Internal Medicine Cardiovascular Disease
DX: I49.1 Atrial premature depolarization (principal); I45.10 Unspecified right bundle-branch block; I25.10 Atherosclerotic heart disease of native coronary artery without angina pectoris; I35.0 Nonrheumatic aortic (valve) stenosis; E11.9 Type 2 diabetes mellitus without complications; I50.43 Acute on chronic combined systolic (congestive) and diastolic (congestive) heart failure; R00.2 Palpitations; I47.10 Supraventricular tachycardia, unspecified; I49.3 Ventricular premature depolarization; I42.1 Obstructive hypertrophic cardiomyopathy; Z95.2 Presence of prosthetic heart valve
CPT/HCPCS: 78452; 93017; A9500; J0153; 93005; 96374; 96375

== ENCOUNTER 2025-03-17 09:42 | Inpatient (IN) | payer MEDICARE, OTHER ==
[~2025-03-17] VITALS: Ht 182.9 cm; Wt 90.0 kg
[~2025-03-17 09:42] MED LIST changes: -ADENOSINE 76 MG in GIVE UN-DILUTED 0 ML IV ONE; -ADENOSINE 90 MG/30 ML INJ IV ONE
--- NOTE | 2025-03-17 10:25 | ED.PDOC ---
History of Present Illness HPI Comments 84-year-old male came to the ER stating that he has been having right arm pain along with bleeding wound which happened two days ago. He did fall landing on his elbow causing a skin tear. Family has been wrapping it up but still continues to bleed. He does have a history of hypotension atrial fibrillation o n a blood thinner. Possibly has dementia. Denies chest pain shortness a breath. Denies any other symptoms. Chief Complaint: Wound Check Time Seen by MD: 09:47 Primary Care Provider: True Gibbons Notes: Nurses Notes, Medications, Allergies Allergies: Coded Allergies: NO KNOWN ALLERGIES (Unverified , 11/24/22) Home Meds Active Scripts Hydrocodone-Acetaminophen (Hydrocodone Bitartrate/AC 5-325 mg) 1 Tab Tab, 1 TAB PO Q6HPRN PRN, #20 TAB Prov:JAVIERVALERIANO WELLS PAC 11/11/23 Reported Medications Magnesium Oxide (MAGNESIUM OXIDE) 400 Mg Tab, 1 TAB PO DAILY for SUPPLEMENT 02/03/23 Simvastatin (Simvastatin) 80 Mg Tab, 1 TAB PO QPM for HIGH CHOLESTEROL 02/03/23 Ibuprofen (Ibuprofen) 800 Mg Tab, 1 TAB PO DAILY for ARTHRITIS 11/24/22 Rivaroxaban (XARELTO) 20 Mg Tab, 1 TAB PO DAILY for ATRIAL FIB. 11/24/22 Amiodarone HCl (Amiodarone HCl) 200 Mg Tab, 1 TAB PO QAM for ATRIAL FIB. 11/24/22 Temazepam (Temazepam) 30 Mg Cap, 1 CAP PO HS for INSOMNIA 07/28/16 Allopurinol (Allopurinol) 300 Mg Tab, 1 TAB PO DAILY for GOUT 07/28/16 Levothyroxine Sodium (Levothyroxine Sodium) 112 Mcg Tab, 1 TAB PO QAM for HYPO THYROIDISM 07/28/16 Information Source: Patient Mode of Arrival: Ambulatory Severity: Moderate Timing: Days Past Medical History PAST MEDICAL HISTORY: AFIB, Anxiety, Gout, High Lipids, HTN, Thyroid Surgical History: Denies all surgeries Family History Family History: Reviewed,noncontributory to illness Social History Smoker: Non-Smoker Alcohol: Occasionally Drugs: Denies Drug Use Lives In: Home Constitutional: denies: chills, diaphoresis, fatigue, fever, malaise, sweats, weakness, others EENTM: denies: blurred vision, double vision, ear bleeding, ear discharge, ear drainage, ear pain, ear ringing, eye pain, eye redness, hearing loss, mouth pain, mouth swelling, nasal discharge, nose bleeding, nose congestion, nose pain, photophobia, tearing, throat pain, throat swelling, voice changes, others Respiratory: denies: cough, hemoptysis, orthopnea, SOB at rest, shortness of breath, SOB with excertion, stridor, wheezing, others Cardiovascular: denies: chest pain, dizzy spells, diaphoresis, Dyspnea on exertion, edema, irregular heart beat, left arm pain, lightheadedness, palpitations, PND, syncope, others Gastrointestinal: denies: abdomen distended, abdominal pain, blood streaked bowels, constipated, diarrhea, dysphagia, difficulty swallowing, hematemesis, melena, nausea, poor appetite, poor fluid intake, rectal bleeding, rectal pain, vomiting, others Genitourinary: denies: burning, dysuria, flank pain, frequency, hematuria, incontinence, penile discharge, penile sore, pain, testicle pain, testicle swelling, urgency, others Neurological: denies: dizziness, fainting, headache, left sided numbness, left sided weakness, numbness, paresthesia, pre-existing deficit, right sided numbness, right sided weakness, seizure, speech problems, tingling, tremors, weakness, others Musculoskeletal: denies: back pain, gout, joint pain, joint swelling, muscle pain, muscle stiffness, neck pain, others Integumetry: reports: wounds (Right forearm); denies: bruises, change in color, change in hair/nails, dryness, laceration, lesions, lumps, rash, others Allergic/Immunocompromised: denies: Difficulty Healing, Frequent Infections, Hives, Itching, others Hematologic/Lymphatic: denies: anemia, blood clots, easy bleeding, easy bruising, swollen glands, others Endocrine: denies: excessive hunger, excessive sweating, excessive thirst, excessive urination, flushing, intolerance to cold, intolerance to heat, unexplained weight gain, unexplained weight loss, others Psychiatric: denies: anxiety, bipolar disorder, depression, hopeless, panic disorder, schizophrenia, sleepless, suicidal, others Physical Exam General Appearance: Moderate Distress HEENT: Normal ENT Inspection, Pharynx Normal, TMs Normal Neck: Full Range of Motion, Non-Tender, Normal, Normal Inspection Respiratory: Chest Non-Tender, Lungs Clear, No Accessory Muscle Use, No Respiratory Distress, Normal Breath Sounds Cardiovascular: No Edema, No JVD, No Murmur, No Gallop, Normal Peripheral Pulses, Regular Rate/Rhythm Breast Exam: Deferred Gastrointestinal: No Organomegaly, Non Tender, No Pulsatile Mass, Normal Bowel Sounds, Soft Genitalia: Deferred Pelvic: Deferred Rectal: Deferred Extremities: No calf tenderness, Normal capillary refill, Normal inspection, Normal range of motion, Non-tender, No pedal edema Musculoskeletal : Apperance: Normal Neurologic: Alert, social psychologist II-XII nml as Tested, No Motor Deficits, Normal Affect, Normal Mood, No Sensory Deficits Cerebellar Function: Normal Reflexes: Normal Skin: Wounds (Right forearm) Lymphatic: No Adenopathy Was a procedure done? Was a procedure done?: No Differential Dx Considerations may include: Cellulitis X-Ray, Labs, Meds, VS Vital Signs Date Time Temp Pulse Resp B/P (MAP) Pulse Ox O2 Delivery O2 Flow Rate FiO2 03/17/25 09:43 97.4 90 15 148/97 97 97.4 Patient alert. Status post fall. Has a skin tear in the right forearm. Vitals stable. Possible early infection. Blood pressure slightly elevated. Started Rocephin pain Wound care consultation. Explained to the family that he will be admitted because of his high-risk +of the wound has a early infection along with bleeding. Continue monitoring. Time of 1ST Reevaluation: 10:23 Reevaluation 1ST: Unchanged Patient Education/Counseling: Diagnosis, Treatment, Prognosis, Need For Follow Up Family Education/Counseling: Diagnosis, Treatment, Prognosis SEPSIS Sepsis Screen Date sepsis recognized/suspect: Mar 17, 2025 Time Sepsis recognized/suspect: 0945 Recent Procedure: No On Antibiotic Therapy: No Respiratory Rate >20: No Heart Rate >90: No Temp<36 C (96.8 F) or >38.3 C: No SBP <90 or MAP <65 mmHG: No New Acute Mental Status Change: No Is the patient on CPAP, BIPAP,: No Vital Signs Date Time Temp Pulse Resp B/P (MAP) Pulse Ox O2 Delivery O2 Flow Rate FiO2 03/17/25 09:43 97.4 90 15 148/97 97 97.4 Departure 1 Departure Time of Disposition: 10:24 Impression: Primary Impression: Cellulitis Qualified Codes: L03.113 - Cellulitis of right upper limb Additional Impressions: Atrial fibrillation with controlled ventricular rate HTN (hypertension) Qualified Codes: I10 - Essential (primary) hypertension Disposition: ADMITTED INPATIENT Admit to: Med Surg Condition: Guarded Critical Care Note Critical Care Time?: No Stability Stability form required: No Heart Score Heart Score: Heart Score Response (Comments) Value History Slightly Suspicious 0 EKG Normal 0 Age >65 2 Risk Factors >3 or Hx ASHD 2 Troponin Normal limit 0 Total 4 ASHLEY COLEMAN MD Mar 17, 2025 10:25
[2025-03-17 10:57] LABS: Hematocrit 44.8 % (41.0-53.0); Hemoglobin 15.2 g/dL (13.5-17.5); Mean Corpuscular Hemoglobin 33.3 pg (28.0-32.0); Mean Corpuscular Volume 98.0 fL (80.0-100.0); Nucleated Red Blood Cells % 0.1 %
[2025-03-17 11:05] LABS: Potassium 4.7 mmol/L (3.5-5.1); Sodium 141 mmol/L (136-145)
[2025-03-17 11:06] LABS: Anion Gap 9 (5-15); Carbon Dioxide 23 mmol/L (20-31)
[2025-03-17 11:07] LABS: Calcium 9.3 mg/dL (8.7-10.4)
[2025-03-17 11:11] LABS: BUN/Creatinine Ratio 13.5 (10.0-20.0); Blood Urea Nitrogen 19 mg/dL (9-23); Glucose 102 mg/dL (74-106)
[2025-03-17 11:16] LABS: Chloride 109 mmol/L (98-107)
[2025-03-17] MEDS ORDERED: HYDROcodone-ACET 5/325MG TAB PO PRN (12:00)
--- NOTE | 2025-03-17 12:05 | DVHHP2 ---
History of Present Illness History of Present Illness Patient is 84-year-old male who came to the hospital after recent mechanical fall while walking outside on slippery surface on last Tuesday. Patient injured himself with right arm and forearm laceration. Given patient is on anticoagulation for atrial fibrillation, patient continued to have active bleeding over the site of laceration that prompted visit to the hospital. Patient has 3-4 cm size laceration on forearm, similar size on arm as well, continued to ooze bleeding. Approximately 100 mL blood loss today over the site of laceration. No active signs of erythema over nearby skin or pus formation. Clean dressing and bandage has been wrapped, patient denying any other symptoms. Past medical history: Ascending aortic aneurysm 4.5 cm on 11/11/2023, interstitial lung disease, atrial fibrillation on rivaroxaban, questionable dementia , hypothyroidism Surgical history: Denies Family history: Noncontributory Social history: Lives with family, denied smoking, drug use. History of drinking alcohol seven beers per day. Allergies: Denies Home medication: Simvastatin, Synthroid, amiodarone, rivaroxaban, temazepam Review of Systems Constitutional: No: Fever, Chills, Sweats, Weakness, Malaise, Other Eyes: No: Pain, Vision change, Conjunctivae inflammation, Eyelid inflammation, Other, Redness ENT: No: Ear pain, Ear discharge, Nose pain, Nose discharge, Nose congestion, Mouth pain, Mouth swelling, Throat pain, Throat swelling, Other Respiratory: No: Cough, Dry, Shortness of breath, SOB with excertion, Wheezing, Hemoptysis, Pleuritic Pain, Sputum, Wheezing, Other Cardiovascular: No: Chest Pain, Palpitations, Orthopnea, Paroxysmal Noc. Dyspnea, Edema, Lt Headedness, Other Gastrointestinal: No: Nausea, Vomiting, Abdominal Pain, Diarrhea, Constipation, Melena, Hematochezia, Other Genitourinary: No Dysuria, No Frequency, No Incontinence, No Hematuria, No Retention, No Other Musculoskeletal: arm pain, hand pain Skin: No: Rash, Lesions, Jaundice, Bruising, Other Neurological: No: Weakness, Numbness, Incoordination, Change in speech, Confusion, Seizures, Other Allergies: Coded Allergies: NO KNOWN ALLERGIES (Unverified , 11/24/22) Medications Current Medications Medications Dose Ordered Sig/Melina Route Start Time Stop Time Status Last Admin Dose Admin Acetaminophen/ Hydrocodone Bitart 1 tab Q4HP PRN PO 03/17/25 12:00 UNV Ceftriaxone Sodium 50 ml @ 100 mls/hr DAILY@09 IV 03/18/25 09:00 UNV Amiodarone HCl 200 mg Q12HR PO 03/17/25 22:00 UNV Atorvastatin Calcium 40 mg HS PO 03/17/25 22:00 UNV Exam Vital Signs Vital Signs Date Time Temp Pulse Resp B/P (MAP) Pulse Ox O2 Delivery O2 Flow Rate FiO2 03/17/25 11:39 97.9 89 18 134/70 (91) 96 97.9 03/17/25 11:39 Room Air Exam General Appearance: Cooperative. Well developed. Well nourished. NAD Head Exam: Normal inspection Neck Exam: Normal inspection. Non-tender. Normal alignment Pulmonary/Respiratory: Chest non-tender. Clear bilateral breath sounds Cardiovascular/Chest: Regular rate and rhythm. No murmurs. No JVD. Peripheral Pulses: 2+ Radial (R). 2+ Radial (L). 2+ Pedal (R). 2+ Pedal (L) Abdominal Exam: Normal bowel sounds. Soft. Nontender. No hepatospenomegaly. No masses Ankle Exam: Negative ankle edema Upper extremities: Right forearm laceration, right arm laceration with oozing blood over the side. Negative lower extremity edema Neuro/Mental Status: A&O x4. Coherent Thoughts/Psych: Normal thought pattern. Appropriate mood and affect. Good judgement and insight Appearance: In no acute distress Skin Exam: Normal inspection. Normal color. Warm. Dry Labs/Xrays Labs Test 03/17/25 10:35 Range/Units White Blood Count 10.7 4.4-10.8 10^3/uL Red Blood Count 4.57 4.5-5.90 10^6/uL Hemoglobin 15.2 13.5-17.5 g/dL Hematocrit 44.8 41.0-53.0 % Mean Corpuscular Volume 98.0 80.0-100.0 fL Mean Corpuscular Hemoglobin 33.3 H 28.0-32.0 pg Mean Corpuscular Hemoglobin Concent 34.0 32.0-36.0 g/dL Red Cell Distribution Width 14.3 11.8-14.3 % Platelet Count 211 140-450 10^3/uL Mean Platelet Volume 8.4 6.9-10.8 fL Neutrophils (%) (Auto) 62.0 37.0-80.0 % Lymphocytes (%) (Auto) 28.4 10.0-50.0 % Monocytes (%) (Auto) 7.4 0.0-12.0 % Eosinophils (%) (Auto) 1.2 0.0-7.0 % Basophils (%) (Auto) 1.0 0.0-2.0 % Neutrophils # (Auto) 6.6 1.6-8.6 10 ^3/uL Lymphocytes # (Auto) 3.0 0.4-5.4 10 ^3/uL Monocytes # (Auto) 0.8 0-1.3 10 ^3/uL Eosinophils # (Auto) 0.1 0-0.8 10 ^3/uL Basophils # (Auto) 0.1 0-0.2 10 ^3/uL Nucleated Red Blood Cells 0.1 % Sodium Level 141 136-145 mmol/L Potassium Level 4.7 3.5-5.1 mmol/L Chloride Level 109 H 98-107 mmol/L Carbon Dioxide Level 23 20-31 mmol/L Anion Gap 9 5-15 Blood Urea Nitrogen 19 9-23 mg/dL Creatinine 1.41 H 0.700-1.30 mg/dL Glomerular Filtration Rate Calc 49 >90 mL/min BUN/Creatinine Ratio 13.5 10.0-20.0 Serum Glucose 102 74-106 mg/dL Calcium Level 9.3 8.7-10.4 mg/dL Troponin I High Sensitivity 11 </=54 ng/L SEPSIS Sepsis Screen Date sepsis recognized/suspect: Mar 17, 2025 Time Sepsis recognized/suspect: 0945 Recent Procedure: No On Antibiotic Therapy: No Respiratory Rate >20: No Heart Rate >90: No Temp<36 C (96.8 F) or >38.3 C: No SBP <90 or MAP <65 mmHG: No New Acute Mental Status Change: No Is the patient on CPAP, BIPAP,: No Physician Orders Electrocardigram (03/17/25 10:25) Heplock Iv (03/17/25 ) Admit (03/17/25 11:58) Code Status (03/17/25 11:58) Vital Signs .PER UNIT PROTOCOL (03/17/25 11:58) Review Orders With Adm. (03/17/25 11:58) Regular Diet (03/17/25 Lunch) Notify Md Of Changes From Base (03/17/25 11:58) Advance Directive (03/17/25 11:58) Urinalysis (03/17/25 11:58) Patient Condition (03/17/25 11:58) Allergies (03/17/25 11:58) Hydrocodone-Acet 5/325mg Tab (Fordyce 5/32 (03/17/25 12:00) Sequential Compression Device (03/17/25 ) * Wound Consult (03/17/25 ) Wound Culture W/ Gs (03/17/25 11:58) Ceftriaxone 1gm/50ml (Rocephin) (03/18/25 09:00) Amiodarone Tablet (Cordarone Tablet) (03/17/25 22:00) Amiodarone Tablet (Cordarone Tablet) (03/17/25 12:15) Atorvastatin (Lipitor) (03/17/25 22:00) Thyroid Stimulating Hormone (03/17/25 12:02) Vitamin D, 25-Hydroxy (03/17/25 12:02) PTPTT (03/17/25 12:04) Vital Signs Date Time Temp Pulse Resp B/P (MAP) Pulse Ox O2 Delivery O2 Flow Rate FiO2 03/17/25 11:39 97.9 89 18 134/70 (91) 96 97.9 03/17/25 11:39 89 18 96 Room Air 03/17/25 09:43 97.4 90 15 148/97 97 97.4 Laboratory Tests Test 03/17/25 10:35 White Blood Count 10.7 10^3/uL (4.4-10.8) Medications Medications Dose Ordered Sig/Melina Route Start Time Stop Time Status Last Admin Dose Admin Ceftriaxone Sodium 50 ml @ 100 mls/hr ONCE ONCE IV 03/17/25 10:30 03/17/25 10:59 DC 03/17/25 11:57 100 MLS/HR Assessment/Plan Assessment/Plan Right arm laceration Right forearm laceration -wound who consultation -empiric IV antibiotics ceftriaxone -continue to monitor H&H -right arm and forearm x-ray no fracture -hold anticoagulation Atrial fibrillation on anticoagulation -amiodarone 200 mg p.o. b.i.d. -hold anticoagulation CKD stage 3 -GFR 49 -continue to monitor and treat comorbidities hypertension, dyslipidemia. Hypothyroidism -continue levothyroxine 125 mcg p.o. daily -TSH 35.93 -follow up with pending free T4 and free T3. Hypertension -continue lisinopril 20 mg p.o. daily Dyslipidemia -atorvastatin 40 mg p.o. daily, patient takes simvastatin at home. History of vitamin-D deficiency -check vitamin-D level PUD prophylaxis with Protonix DVT prophylaxis : Patient is actively bleeding, patient is ambulatory. Goals of care discussed with patient and his , discussed greater than 22 minutes, DNI/DNR. Plan discussed with Dr. Conde Plan discussed with: Patient, Spouse My Orders Orders - ARLIN PERES Procedure Category Date Status Time Admit ADMIT 03/17/25 Transmitted 11:58 Code Status CODE 03/17/25 Transmitted 11:[address] [facility] 03/17/25 In Process 11:[address] [facility] 03/17/25 In Process Adm. 11:58 Regular Diet DIET 03/17/25 Transmitted Lunch Notify Md Of Changes [facility] 03/17/25 In Process From Base 11:58 Advance Directive [facility] 03/17/25 In Process 11:58 Urinalysis LAB 03/17/25 Logged 11:58 Patient Condition ORDERS 03/17/25 Transmitted 11:58 Allergies [facility] 03/17/25 In Process 11:58 Hydrocodone-Acet PHA 03/17/25 Logged 5/325mg Tab (Fordyce 12:00 Sequential [facility] 03/17/25 In Process Compression Device * Wound Consult CONS 03/17/25 Transmitted Wound Culture W/ Gs MARIA VICTORIA 03/17/25 Logged 11:58 Ceftriaxone 1gm/50ml PHA 03/18/25 Logged (Rocephin) 09:00 Amiodarone Tablet PHA 03/17/25 Logged (Cordarone Tablet) 22:00 Amiodarone Tablet PHA 03/17/25 Logged (Cordarone Tablet) 12:15 Atorvastatin (Lipitor) PHA 03/17/25 Logged 22:00 Thyroid Stimulating LAB 03/17/25 Logged Hormone 12:02 Vitamin D, 25-Hydroxy LAB 03/17/25 Logged 12:02 PTPTT LAB 03/17/25 Transmitted 12:04 Date of Service: Mar 17, 2025 Billing Provider: EDEL CONDE MD Common Visit Codes: [id number] INP/OBS CARE (HIGH) Secondary Visit Codes: [id number] CARE PLAN 30 MINUTES ARLIN PERES RESIDENT Mar 17, 2025 12:05
[2025-03-17] MEDS: AMIODARONE HCL 200 MG TAB PO ONE (12:35)
[2025-03-17 13:23] LABS: INR 1.17 (0.9-1.15); Partial Thromboplastin Time 35.8 SEC (24.5-34.5); Prothrombin Time 12.2 sec (9.3-11.8)
[2025-03-17] MEDS: PANTOPRAZOLE 40 MG TAB PO ONE (13:48)
[2025-03-17 13:52] VITALS: PULSE 97; RESP 16; O2SAT 98
[2025-03-17 13:59] LABS: Urine Protein, UAD TRACE (Negative)
--- NOTE | 2025-03-17 15:16 | DVH ---
CLINICAL INDICATION: PAIN TECHNIQUE: 2 radiographic views of the right forearm were obtained. Comparison: None FINDINGS/IMPRESSION: Bony structures of the right forearm are intact with no fractures. There are no radiopaque foreign bodies There are several cysts in multiple carpal bones.
--- NOTE | 2025-03-17 15:17 | DVH ---
CLINICAL INDICATION: Right forearm and upper arm x-ray TECHNIQUE: 2 radiographic views of the right humerus were obtained. Comparison: None FINDINGS/IMPRESSION: Normal bony alignment No fractures or dislocations. No radiopaque foreign bodies No abnormal soft tissue calcifications.
[2025-03-17 15:39] VITALS: BP 148/87; PULSE 80; RESP 18; TEMP 98; O2SAT 100
[2025-03-17 15:49] VITALS: BP 148/87; PULSE 80; RESP 18; TEMP 98; O2SAT 100
[2025-03-17] MEDS ORDERED: LISI20TA56 PO (16:30)
[2025-03-17] MEDS ORDERED: LEVO-849 PO (16:31)
[2025-03-17] MEDS ORDERED: ATOR-507 PO (16:33)
[2025-03-17] MEDS ORDERED: CHOL20007 PO (16:34)
[2025-03-17 18:26] LABS: Hematocrit 42.5 % (41.0-53.0); Hemoglobin 14.3 g/dL (13.5-17.5)
[2025-03-17] MEDS: LEVOTHYROXINE SODIUM 25 MCG TAB PO ONE (19:48)
[2025-03-17] MEDS: LEVOTHYROXINE SODIUM 100 MCG TAB PO ONE (19:48)
[2025-03-17] MEDS: LISINOPRIL 20 MG TAB PO ONE (19:49)
[2025-03-17 21:00] VITALS: BP 109/64; PULSE 69; RESP 20; TEMP 98.2; O2SAT 93
[2025-03-17] MEDS: AMIODARONE HCL 200 MG TAB PO SCH (21:03)
[2025-03-17] MEDS: ATORVASTATIN 20 MG TAB PO SCH (21:03)
[2025-03-17 21:41] VITALS: BP 127/79; PULSE 65; RESP 17; TEMP 97.8; O2SAT 98
[2025-03-18] VITALS (8 sets, daily range): BP systolic 114–146; BP diastolic 67–89; PULSE 58–81; RESP 16–18; TEMP 81–98.6; O2SAT 98–99
[2025-03-18] MEDS: LEVOTHYROXINE SODIUM 25 MCG TAB PO SCH (05:58)
[2025-03-18] MEDS: LEVOTHYROXINE SODIUM 100 MCG TAB PO SCH (05:58)
[2025-03-18] MEDS: PANTOPRAZOLE 40 MG TAB PO SCH (05:59)
[2025-03-18 07:32] LABS: Hematocrit 41.3 % (41.0-53.0); Hemoglobin 14.2 g/dL (13.5-17.5); Mean Corpuscular Hemoglobin 33.4 pg (28.0-32.0); Mean Corpuscular Volume 97.3 fL (80.0-100.0); Nucleated Red Blood Cells % 0.1 %
[2025-03-18] MEDS: LISINOPRIL 20 MG TAB PO SCH (09:23)
[2025-03-18 12:48] LABS: Free T3 1.65 pg/mL (2.3-4.2)
[2025-03-18 12:55] LABS: Free T4 (Free Thyroxine) 0.95 ng/dL (0.89-1.76)
--- NOTE | 2025-03-18 12:56 | DVHPN2 ---
Progress Note Date Seen: Mar 18, 2025 Medical Necessity Reason Pt with a Central, PICC or Fol: No Subjective Patient reports: No new complaints Review of Systems: HEENT:Normal, CVS:Normal, RESPIRATORY:Normal, GI:Normal, :Normal, MSK:Normal, NEURO:Normal Objective vital signs Vital Sign Date Time Temp Pulse Resp B/P (MAP) Pulse Ox O2 Delivery O2 Flow Rate FiO2 03/18/25 09:23 130/75 03/18/25 08:34 97.9 64 16 98 97.9 03/17/25 16:00 Room Air* 0 21 Total Intake and Output 03/17/25 03/17/25 03/18/25 15:00 23:00 07:00 Intake Total 50 ml 800 ml Balance 50 ml 800 ml medications Current Medications Medications Dose Ordered Sig/Melina Route Start Time Stop Time Status Last Admin Dose Admin Acetaminophen/ Hydrocodone Bitart 1 tab Q4HP PRN PO 03/17/25 12:00 Atorvastatin Calcium 40 mg HS PO 03/17/25 22:00 03/17/25 21:03 40 MG Pantoprazole Sodium 40 mg DAILY@0600 PO 03/18/25 06:00 03/18/25 05:59 40 MG Levothyroxine Sodium 100 mcg QAM@0600 PO 03/18/25 06:00 03/18/25 05:58 100 MCG Levothyroxine Sodium 25 mcg QAM@0600 PO 03/18/25 06:00 03/18/25 05:58 25 MCG Amiodarone HCl 200 mg DAILY PO 03/19/25 10:00 UNV Examination: GENERAL:Normal, HEENT:Normal, NECK:Normal, LUNGS:Normal, CVS:Normal, ABDOMEN:Normal, MSK:Normal, MSK:Abnormal (RIGHT FOREARM LACERATION), SKIN:Normal, NEURO:Normal, :Normal laboratory and microbiology Laboratory Tests 03/18/25 06:24 03/17/25 10:35 Test 03/17/25 10:35 Range/Units Serum Glucose 102 74-106 mg/dL Problem List/Assessment/Plan Problem List/Assessment/Plan #1 right forearm laceration/fall: iv ancef #2 uncontrolled hypothyroidism: cont meds #3 alcohol abuse: thiamine #4 a fib : hold xarelto #5 prosthetic AV #6 cad s/p stent to lad #7 hyperlipidemia #8 htn #9 gout advance care planning- full code- time spent 19 mins Plan discussed with: Patient, Spouse My Orders My Orders Orders - GI SARKAR MD Procedure Category Date Status Time * Cardiology Consult CONS 03/18/25 Transmitted 12:47 Amiodarone Tablet PHA 03/19/25 Transmitted (Cordarone Tablet) 10:00 Lisinopril Tablet PHA 03/19/25 Transmitted (Zestril Tablet) 10:00 Cefazolin Ancef PHA 03/18/25 Transmitted 14:00 Pt Request For Service PT 03/18/25 Transmitted 12:48 * Brake Repairer CONS 03/18/25 Transmitted Consult Thiamine Inj PHA 03/18/25 Transmitted 13:00 Thiamine Inj PHA 03/19/25 Transmitted 10:00 Complete Blood Count LAB 03/19/25 Verified 06:00 Comprehensive LAB 03/19/25 Verified Metabolic Panel 06:00 Magnesium LAB 03/19/25 Verified 05:00 Phosphorus LAB 03/19/25 Verified 06:00 Chest Portable XY 03/18/25 Transmitted 12:48 Date of Service: Mar 18, 2025 Billing Provider: GI SARKAR MD Common Visit Codes: [id number] INP/OBS CARE(HIGH) Secondary Visit Codes: [id number] CARE PLAN 30 MINUTES GI SARKAR MD Mar 18, 2025 12:56
--- NOTE | 2025-03-18 13:28 | DVH ---
INDICATION: CAD TECHNIQUE: Frontal view of the chest. COMPARISON: XR CHEST 2 VIEWS on DOS: 01/04/25, XY CHEST XRAY 1 VIEW on DOS: 11/11/23, CT CHEST WITHOUT C ONTRAST on DOS: 11/11/23, XY CHEST TWO VIEWS ROUTINE on DOS: 02/02/23, XY CHEST TWO VIEWS ROUTINE on DOS : 11/24/22 FINDINGS: . The heart and mediastinal contours are grossly unremarkable. There is no evidence of pleural disea se. The lungs are clear. The bony structures of the chest are intact without fracture. IMPRESSION: 1. No evidence of acute disease.
--- NOTE | 2025-03-18 13:46 | DVHPN2 ---
Progress Note - Dictate Date Seen: Mar 17, 2025 Medical Necessity Reason Pt with a Central, PICC or Fol: No Subjective PT WITH MECHANICAL FALL SUSTAINED ARM LACERATION BLEEDING DIATHESIS SECONDARY TO ELIQUIS USE PMH ORG HD AFIB HTN HYPERLIPIDEMIA AAA ELVIN HYPOTHYROIDISM ELEVATED TSH SECONDARY TO AMIODARONE INTERSTITIAL LUNG DISEASE vital signs Vital Sign Date Time Temp Pulse Resp B/P (MAP) Pulse Ox O2 Delivery O2 Flow Rate FiO2 03/18/25 09:23 130/75 03/18/25 08:34 97.9 64 16 98 97.9 03/17/25 16:00 Room Air* 0 21 Total Intake and Output 03/17/25 03/17/25 03/18/25 15:00 23:00 07:00 Intake Total 50 ml 800 ml Balance 50 ml 800 ml medications Current Medications Medications Dose Ordered Sig/Melina Route Start Time Stop Time Status Last Admin Dose Admin Acetaminophen/ Hydrocodone Bitart 1 tab Q4HP PRN PO 03/17/25 12:00 Atorvastatin Calcium 40 mg HS PO 03/17/25 22:00 03/17/25 21:03 40 MG Pantoprazole Sodium 40 mg DAILY@0600 PO 03/18/25 06:00 03/18/25 05:59 40 MG Levothyroxine Sodium 100 mcg QAM@0600 PO 03/18/25 06:00 03/18/25 05:58 100 MCG Levothyroxine Sodium 25 mcg QAM@0600 PO 03/18/25 06:00 03/18/25 05:58 25 MCG Amiodarone HCl 200 mg DAILY PO 03/19/25 10:00 Lisinopril 10 mg DAILY PO 03/19/25 10:00 Cefazolin Sodium 50 ml @ 100 mls/hr Q8HR IV 03/18/25 14:00 Thiamine HCl 100 mg DAILY IV 03/19/25 10:00 laboratory and microbiology Laboratory Tests 03/18/25 06:24 03/17/25 10:35 Test 03/17/25 10:35 Range/Units Serum Glucose 102 74-106 mg/dL Problem List MECHANICAL FALL SUSTAINED ARM LACERATION BLEEDING DIATHESIS SECONDARY TO ELIQUIS USE PM ORG HD AFIB HTN HYPERLIPIDEMIA AAA ELVIN HYPOTHYROIDISM ELEVATED TSH SECONDARY TO AMIODARONE INTERSTITIAL LUNG DISEASE Assessment/Plan DC ELIQURYAN ATTAIN HEMOSTASIS WOUND CARE Plan discussed with: Patient NICHOLE CASAREZ MD Mar 18, 2025 13:46
--- NOTE | 2025-03-18 13:46 | DVHPN2 ---
Progress Note - Dictate Date Seen: Mar 18, 2025 Medical Necessity Reason Pt with a Central, PICC or Fol: No Subjective PT WITH MECHANICAL FALL SUSTAINED ARM LACERATION BLEEDING DIATHESIS SECONDARY TO ELIQUIS USE PMH ORG HD AFIB HTN HYPERLIPIDEMIA AAA ELVIN HYPOTHYROIDISM ELEVATED TSH SECONDARY TO AMIODARONE INTERSTITIAL LUNG DISEASE vital signs Vital Sign Date Time Temp Pulse Resp B/P (MAP) Pulse Ox O2 Delivery O2 Flow Rate FiO2 03/18/25 09:23 130/75 03/18/25 08:34 97.9 64 16 98 97.9 03/17/25 16:00 Room Air* 0 21 Total Intake and Output 03/17/25 03/17/25 03/18/25 15:00 23:00 07:00 Intake Total 50 ml 800 ml Balance 50 ml 800 ml medications Current Medications Medications Dose Ordered Sig/Melina Route Start Time Stop Time Status Last Admin Dose Admin Acetaminophen/ Hydrocodone Bitart 1 tab Q4HP PRN PO 03/17/25 12:00 Atorvastatin Calcium 40 mg HS PO 03/17/25 22:00 03/17/25 21:03 40 MG Pantoprazole Sodium 40 mg DAILY@0600 PO 03/18/25 06:00 03/18/25 05:59 40 MG Levothyroxine Sodium 100 mcg QAM@0600 PO 03/18/25 06:00 03/18/25 05:58 100 MCG Levothyroxine Sodium 25 mcg QAM@0600 PO 03/18/25 06:00 03/18/25 05:58 25 MCG Amiodarone HCl 200 mg DAILY PO 03/19/25 10:00 Lisinopril 10 mg DAILY PO 03/19/25 10:00 Cefazolin Sodium 50 ml @ 100 mls/hr Q8HR IV 03/18/25 14:00 Thiamine HCl 100 mg DAILY IV 03/19/25 10:00 laboratory and microbiology Laboratory Tests 03/18/25 06:24 03/17/25 10:35 Test 03/17/25 10:35 Range/Units Serum Glucose 102 74-106 mg/dL Problem List MECHANICAL FALL SUSTAINED ARM LACERATION BLEEDING DIATHESIS SECONDARY TO ELIQUIS USE PMH ORG HD AFIB HTN HYPERLIPIDEMIA AAA ELVIN HYPOTHYROIDISM ELEVATED TSH SECONDARY TO AMIODARONE INTERSTITIAL LUNG DISEASE BY HX HOWEVER CXR NEGATIVE Assessment/Plan DC ELIQUIS ATTAIN HEMOSTASIS WOUND CARE Plan discussed with: Patient NICHOLE CASAREZ MD Mar 18, 2025 13:46
[2025-03-18] MEDS: THIAMINE 100mg/ml INJ (200mg/2ml VIAL) IV ONE (14:26)
[2025-03-18] MEDS: ceFAZolin 1GM/50ML 50 ML IV SCH (14:26)
[2025-03-19 01:00] VITALS: BP 146/96; PULSE 67; RESP 17; TEMP 98.3; O2SAT 98
[2025-03-19 05:00] VITALS: BP 149/92; PULSE 65; RESP 17; TEMP 98.2; O2SAT 98
[2025-03-19 07:27] LABS: Hematocrit 41.8 % (41.0-53.0); Hemoglobin 14.3 g/dL (13.5-17.5); Mean Corpuscular Hemoglobin 33.1 pg (28.0-32.0); Mean Corpuscular Volume 96.6 fL (80.0-100.0); Nucleated Red Blood Cells % 0.1 %
[2025-03-19 07:43] LABS: Alanine Aminotransferase 15 U/L (7-40); Alkaline Phosphatase 99 U/L (46-116); Anion Gap 9 (5-15); BUN/Creatinine Ratio 13.6 (10.0-20.0); Blood Urea Nitrogen 16 mg/dL (9-23); Calcium 8.8 mg/dL (8.7-10.4); Carbon Dioxide 24 mmol/L (20-31); Glucose 95 mg/dL (74-106); Magnesium 1.9 mg/dL (1.6-2.6); Potassium 3.9 mmol/L (3.5-5.1); Sodium 142 mmol/L (136-145); Total Protein 7.1 g/dL (5.7-8.2)
[2025-03-19 07:44] LABS: Albumin 4.3 g/dL (3.2-4.8); Bilirubin, Total 0.5 mg/dL (0.2-1.0)
[2025-03-19 07:45] LABS: Chloride 109 mmol/L (98-107)
[2025-03-19 08:00] VITALS: PULSE 94; RESP 18; O2SAT 98
[2025-03-19 09:00] VITALS: BP 132/82; PULSE 94; RESP 18; TEMP 97.6; O2SAT 98
[2025-03-19] MEDS: AMIODARONE HCL 200 MG TAB PO SCH (09:36)
[2025-03-19] MEDS: LISINOPRIL 20 MG TAB PO SCH (09:37)
[2025-03-19] MEDS: THIAMINE 100mg/ml INJ (200mg/2ml VIAL) IV SCH (09:37)
--- NOTE | 2025-03-19 11:26 | DVHDS2 ---
Discharge Summary Date of Admission Mar 17, 2025 at 11:58 Date of Discharge: Mar 19, 2025 Labs/Diagnostic Data: Laboratory Results Test 03/19/25 06:30 03/17/25 12:49 03/17/25 12:06 03/17/25 10:35 White Blood Count 7.1 10^3/uL (4.4-10.8) Red Blood Count 4.32 10^6/uL (4.5-5.90) Hemoglobin 14.3 g/dL (13.5-17.5) Hematocrit 41.8 % (41.0-53.0) Mean Corpuscular Volume 96.6 fL (80.0-100.0) Mean Corpuscular Hemoglobin 33.1 pg (28.0-32.0) Mean Corpuscular Hemoglobin Concent 34.2 g/dL (32.0-36.0) Red Cell Distribution Width 14.1 % (11.8-14.3) Platelet Count 159 10^3/uL (140-450) Mean Platelet Volume 7.4 fL (6.9-10.8) Neutrophils (%) (Auto) 58.3 % (37.0-80.0) Lymphocytes (%) (Auto) 30.8 % (10.0-50.0) Monocytes (%) (Auto) 9.6 % (0.0-12.0) Eosinophils (%) (Auto) 0.8 % (0.0-7.0) Basophils (%) (Auto) 0.5 % (0.0-2.0) Neutrophils # (Auto) 4.2 10 ^3/uL (1.6-8.6) Lymphocytes # (Auto) 2.2 10 ^3/uL (0.4-5.4) Monocytes # (Auto) 0.7 10 ^3/uL (0-1.3) Eosinophils # (Auto) 0.1 10 ^3/uL (0-0.8) Basophils # (Auto) 0 10 ^3/uL (0-0.2) Nucleated Red Blood Cells 0.1 % Sodium Level 142 mmol/L (136-145) Potassium Level 3.9 mmol/L (3.5-5.1) Chloride Level 109 mmol/L (98-107) Carbon Dioxide Level 24 mmol/L (20-31) Anion Gap 9 (5-15) Blood Urea Nitrogen 16 mg/dL (9-23) Creatinine 1.18 mg/dL (0.700-1.30) Glomerular Filtration Rate Calc 60 mL/min (>90) BUN/Creatinine Ratio 13.6 (10.0-20.0) Serum Glucose 95 mg/dL (74-106) Calcium Level 8.8 mg/dL (8.7-10.4) Phosphorus Level 2.8 mg/dL (2.4-5.1) Magnesium Level 1.9 mg/dL (1.6-2.6) Total Bilirubin 0.5 mg/dL (0.2-1.0) Aspartate Amino Transferase (AST) 27 U/L (13-40) Alanine Aminotransferase (ALT) 15 U/L (7-40) Alkaline Phosphatase 99 U/L (46-116) Total Protein 7.1 g/dL (5.7-8.2) Albumin 4.3 g/dL (3.2-4.8) Thyroid Stimulating Hormone (TSH) 31.95 uIU/mL (0.55-4.78) Prothrombin Time 12.2 sec (9.3-11.8) Prothrombin Time INR 1.17 (0.9-1.15) Activated Partial Thromboplast Time 35.8 SEC (24.5-34.5) Vitamin D 25-Hydroxy 23.6 ng/mL (30.0-100) Free Thyroxine (T4) Calculated 0.95 ng/dL (0.89-1.76) Free Triiodothyronine (T3) pg/mL 1.65 pg/mL (2.3-4.2) Urine Color Yellow (Yellow) Urine Clarity Clear (Clear) Urine pH 5.0 (5.0-9.0) Urine Specific Bre[place] 1.020 (1.001-1.035) Urine Protein Trace (Negative) Urine Ketones Negative (Negative) Urine Blood Negative /uL (Negative) Urine Nitrite Negative (Negative) Urine Bilirubin Negative (Negative) Urine Urobilinogen Normal mg/dL (Negative) Urine Leukocyte Esterase Negative /uL (Negative) Urine RBC None seen /hpf (0 - 3) Urine Microscopic WBC 1 /HPF (0-3) Urine Squamous Epithelial Cells None seen /hpf (<5) Urine Bacteria None seen /hpf (None Seen) Urine Hyaline Casts Few /lpf (0 - 2) Urine Mucus Few (None Seen) Urine Glucose Normal mg/dL (Normal) Troponin I High Sensitivity 11 ng/L (</=54) Other Laboratory Tests 03/19/25 06:30 Brief Hx & Hospital Course: see dictated note Condition at Discharge: Fair Final Diagnosis/Problems List fall Discharge Disposition: Home Discharge Instruct/Medications Diet: Cardiac 2g Na,low cholest Activity: No Restrictions, As Tolerated Follow Up/Referral: fu with pcp/dr Nicole Medications: resume home meds except change in synthroid dose script to pharmacy Scheduled Allopurinol (Allopurinol), 1 TAB PO DAILY, (Reported) Amiodarone HCl (Amiodarone HCl), 1 TAB PO QAM, (Reported) Atorvastatin Calcium (Lipitor), 1 TAB PO QPM, (Reported) Cholecalciferol (Vitamin D3), 1 TAB PO DAILY, (Reported) Ibuprofen (Ibuprofen), 1 TAB PO DAILY, (Reported) Levothyroxine Sodium (Levothyroxine Sodium), 1 TAB PO QAM, (Reported) Lisinopril (Lisinopril), 10 TAB PO DAILY, (Reported) Magnesium Oxide (Magnesium Oxide), 1 TAB PO DAILY, (Reported) Rivaroxaban (Xarelto), 1 TAB PO DAILY, (Reported) Simvastatin (Simvastatin), 1 TAB PO QPM, (Reported) Temazepam (Temazepam), 1 CAP PO HS, (Reported) Scheduled PRN Hydrocodone-Acetaminophen (Hydrocodone Bitartrate/AC 5-325 mg), 1 TAB PO Q6HPRN PRN Discharge Statement: "Patient was advised to return to the ER or call 911 if any headaches, dizziness, shortness of breath, chest pain, abdominal pain, bleeding, fevers, or worsening of medical condition. Patient was counseled about treatment plan, medications, possible side effects, patientverbalized understanding. All questions were answered to the best of my ability. This discharge took greater then 30 minutes in planning, reviewing documentation, counseling the patient, and discussing with other team members." ASSESSMENT ASSESSMENT Assessment fall Date of Service: Mar 19, 2025 Billing Provider: GI SARKAR MD Common Visit Codes: 23212-REU/OBS DISCH DAY >30min GI SARKAR MD Mar 19, 2025 11:26
[2025-03-19] MEDS ORDERED: CEPH500C PO (11:28)
[2025-03-19] MEDS ORDERED: LEVO125T7 PO (11:28)
--- NOTE | 2025-03-19 11:43 | DVHDS ---
DATE OF DISCHARGE: 03/19/2025 HISTORY OF PRESENT ILLNESS: The patient is an 84-year-old gentleman who was admitted after he had a fall with subsequent laceration of the right forearm. The patient has history of ascending aortic aneurysm, atrial fibrillation, interstitial lung disease, hypothyroidism. HOSPITAL COURSE: The patient was seen in cardiology consult by Dr. Nicole. The patient's TSH was uncontrolled at 35.3. The patient's creatinine was elevated to 1.4 that improved to 1.1 at the time of discharge. The patient will now be discharged home to resume his home medications except his thyroid dose will be increased from 112 mcg to 125 mcg as well as he will be placed on Keflex 500 mg t.i.d. for 7 days and will have home health for wound care. He has been strongly advised to quit alcohol and monitor his TSH levels. FINAL DIAGNOSES: * Right forearm laceration status post fall. * Uncontrolled hypothyroidism. * Alcohol abuse. * Atrial fibrillation. * Coronary artery disease status post stent. * Hyperlipidemia. * Hypertension. * Gout. Time spent in discharge planning and review of plan with the patient, nursing, and family at bedside was 39 minutes. MD LATISHA Rojas/LAXMI TID: [id number] RECEIPT: [id number]
[2025-03-19 12:26] VITALS: BP 132/82; PULSE 94; RESP 18; TEMP 97.9; O2SAT 98
[2025-03-19 13:00] VITALS: BP 148/78; PULSE 87; RESP 18; TEMP 97.8; O2SAT 97
--- NOTE | 2025-03-19 15:00 | DVHPN2 ---
Progress Note - Dictate Date Seen: Mar 19, 2025 Medical Necessity Reason Pt with a Central, PICC or Fol: No Subjective PT WITH MECHANICAL FALL SUSTAINED ARM LACERATION BLEEDING DIATHESIS SECONDARY TO ELIQUIS USE [facility] ORG HD AFIB HTN HYPERLIPIDEMIA AAA ELVIN HYPOTHYROIDISM ELEVATED TSH SECONDARY TO AMIODARONE INTERSTITIAL LUNG DISEASE vital signs Vital Sign Date Time Temp Pulse Resp B/P (MAP) Pulse Ox O2 Delivery O2 Flow Rate FiO2 03/19/25 13:00 97.8 87 18 148/78 (101) 97 97.8 03/19/25 08:00 Room Air* 0 21 Total Intake and Output 03/18/25 03/18/25 03/19/25 15:00 23:00 07:00 Intake Total 860 ml 220 ml Balance 860 ml 220 ml medications Current Medications Medications Dose Ordered Sig/Melina Route Start Time Stop Time Status Last Admin Dose Admin Acetaminophen/ Hydrocodone Bitart 1 tab Q4HP PRN PO 03/17/25 12:00 Atorvastatin Calcium 40 mg HS PO 03/17/25 22:00 03/18/25 21:36 40 MG Pantoprazole Sodium 40 mg DAILY@0600 PO 03/18/25 06:00 03/19/25 06:00 40 MG Levothyroxine Sodium 100 mcg QAM@0600 PO 03/18/25 06:00 03/19/25 06:00 100 MCG Levothyroxine Sodium 25 mcg QAM@0600 PO 03/18/25 06:00 03/19/25 06:00 25 MCG Amiodarone HCl 200 mg DAILY PO 03/19/25 10:00 03/19/25 09:36 200 MG Lisinopril 10 mg DAILY PO 03/19/25 10:00 03/19/25 09:37 10 MG Cefazolin Sodium 50 ml @ 100 mls/hr Q8HR IV 03/18/25 14:00 03/19/25 05:59 100 MLS/HR Thiamine HCl 100 mg DAILY IV 03/19/25 10:00 03/19/25 09:37 100 MG laboratory and microbiology Laboratory Tests 03/19/25 06:30 Test 03/19/25 06:30 Range/Units Serum Glucose 95 74-106 mg/dL Problem List MECHANICAL FALL SUSTAINED ARM LACERATION BLEEDING DIATHESIS SECONDARY TO ELIQUIS USE [facility] ORG HD AFIB HTN HYPERLIPIDEMIA AAA ELVIN HYPOTHYROIDISM ELEVATED TSH SECONDARY TO AMIODARONE INTERSTITIAL LUNG DISEASE BY HX HOWEVER CXR NEGATIVE Assessment/Plan [facility] ATT[facility] HEMOSTASIS WOUND CARE Plan discussed with: Patient NICHOLE CASAREZ MD Mar 19, 2025 14:59
[2025-03-19] MEDS ORDERED: MELATONIN 5 MG TAB PO ONE (22:00)
== END 2025-03-19 13:30 | disposition home health service (06) | DRG 605 ==
LOC: ER 09:42 → OVERFLOW 11:58 → WEST WING 21:41
PROVIDERS: ADMIT Internal Medicine; ATTEND Internal Medicine
DX: S51.811A Laceration without foreign body of right forearm, initial encounter (principal); N18.30 Chronic kidney disease, stage 3 unspecified; I48.91 Unspecified atrial fibrillation; I12.9 Hypertensive chronic kidney disease with stage 1 through stage 4 chronic kidney disease, or unspecified chronic kidney disease; E78.5 Hyperlipidemia, unspecified; F10.10 Alcohol abuse, uncomplicated; M10.9 Gout, unspecified; F41.9 Anxiety disorder, unspecified; Y93.01 Activity, walking, marching and hiking; E03.9 Hypothyroidism, unspecified; Y90.9 Presence of alcohol in blood, level not specified; G47.33 Obstructive sleep apnea (adult) (pediatric); I25.10 Atherosclerotic heart disease of native coronary artery without angina pectoris; W18.30XA Fall on same level, unspecified, initial encounter; Z79.01 Long term (current) use of anticoagulants; Z79.899 Other long term (current) drug therapy; Z95.5 Presence of coronary angioplasty implant and graft; Y92.89 Other specified places as the place of occurrence of the external cause; Y99.8 Other external cause status
CPT/HCPCS: 36415; 71045; 73060; 73090; 80048; 80053; 81001; 82306; 83735; 84100; 84439; 84443; 84481; 84484; 85014; 85018; 85025; 85610; 85730; 96374; 97163; G0378